=== PATIENT | female | born 1985 | race Caucasian/White ===

== ENCOUNTER 2024-05-13 21:08 | Emergency (ER) | payer MEDICARE, MEDICAID ==
[~2024-05-13] VITALS: Ht 157.5 cm; Wt 74.1 kg
[2024-05-13 21:11] VITALS: TEMP 98.3
[2024-05-13] MEDS ORDERED: PRIM50TA27 PO (22:56)
[2024-05-13] MEDS ORDERED: LAMO150T2 PO (22:58)
[2024-05-13] MEDS ORDERED: FEXO-271 PO (23:00)
[2024-05-13] MEDS ORDERED: AZEL23SP2 BOTHNARES (23:02)
[2024-05-13] MEDS: ketorolac trometh 15mg/ml vial 15 MG/ML ML IM ONE (23:31)
[2024-05-14 00:09] VITALS: BP 128/75; PULSE 75; RESP 16; O2SAT 97
== END 2024-05-14 00:12 | disposition home or self-care (01) ==
LOC: ER 21:10
DX: M79.672 Pain in left foot (principal); Z88.2 Allergy status to sulfonamides; Z88.5 Allergy status to narcotic agent; Z88.8 Allergy status to other drugs, medicaments and biological substances; Z79.899 Other long term (current) drug therapy; X50.1XXA Overexertion from prolonged static or awkward postures, initial encounter; Y93.02 Activity, running; Y92.89 Other specified places as the place of occurrence of the external cause; Y99.8 Other external cause status
CPT/HCPCS: 73610; 96372; 99283; A6449; J1885